=== PATIENT | female | born 1950 | race Caucasian/White ===

== ENCOUNTER 2017-12-03 10:49 | Inpatient (IN) | payer MEDICARE, BC ==
[~2017-12-03] VITALS: Ht 170.2 cm; Wt 80.0 kg
[2017-12-03 12:05] LABS: PARTIAL THROMBOPLASTIN TIME 25 SECONDS (22-32); PROTHROMBIN TIME 10.7 SECONDS (9.0-12.0)
[2017-12-03 12:10] LABS: ALANINE AMINOTRANSFERASE 41 U/L (12-78); ALBUMIN 3.7 G/DL (3.4-5.0); ALBUMIN/GLOBULIN RATIO 1.3 (1.1-1.5); ALKALINE PHOSPHATASE 96 IU/L (46-116); ANION GAP 12 (8-16); ASPARTATE AMINO TRANSFERASE 26 U/L (10-37); BILIRUBIN,TOTAL 0.4 MG/DL (0.1-1.0); BLOOD UREA NITROGEN 12 MG/DL (7-18); BUN/CREATININE RATIO 12.4 (6.6-38.0); CALCIUM 9.1 MG/DL (8.5-10.1); CHLORIDE 102 MMOL/L (99-107); CREATININE 0.97 MG/DL (0.40-0.90); GLUCOSE 208 MG/DL (70-104); SODIUM 140 MMOL/L (135-145); TOTAL CARBON DIOXIDE 26.4 MMOL/L (24-32); TOTAL PROTEIN 6.6 G/DL (6.4-8.2); eGFR 58 ML/MIN
[2017-12-03] MEDS ORDERED: iohexol 350MG/ML 100ml bottle IV ONE (12:29)
[2017-12-03 12:32] LABS: BASOPHILS % (AUTO) 0.2 % (0-1); EOSINOPHILS % (AUTO) 0.1 % (0-6); HEMATOCRIT 41.6 % (35.0-45.0); HEMOGLOBIN 14.2 g/dl (12.0-16.0); LYMPHOCYTES # (AUTO) 0.5 X10'3 (1.1-4.8); LYMPHOCYTES % (AUTO) 4.5 % (21-51); MEAN CORPUSCULAR HEMOGLOBIN 31.6 PG (27.0-31.0); MEAN CORPUSCULAR VOLUME 92.9 FL (78-98); MEAN PLATELET VOLUME 8.5 FL (7.4-10.4); MONOCYTES # (AUTO) 0.4 X10'3 (0-0.9); MONOCYTES % (AUTO) 3.3 % (2-12); NEUTROPHILS # (AUTO) 10.3 X10'3 (1.8-7.7); NEUTROPHILS % (AUTO) 91.9 % (42-75); PLATELET COUNT 218 X10'3 (140-440); RED BLOOD COUNT 4.48 X10'6 (4.20-5.60); RED CELL DISTRIBUTION WIDTH 13.2 % (11.5-14.5); WHITE BLOOD COUNT 11.2 X10'3 (4.5-11.0)
[2017-12-03] MEDS ORDERED: heparin 10,000 units/1 ML INJ IV ONE (14:10)
[2017-12-03] MEDS ORDERED: heparin 10,000 units/1 ML INJ IV PRN ×2 (14:10→16:25)
[2017-12-03] MEDS: normal saline 1000ML IV soln IVB ONE ×2 (14:29→14:57)
[2017-12-03] MEDS: normal saline 1000ml 1,000 ML IV SCH (16:22)
[2017-12-03] MEDS ORDERED: mag hydrox/Alum hydrox/simeth 30ml oral suspension PO PRN (16:25)
[2017-12-03] MEDS ORDERED: magnesium Cl slow-release 64mg tablet PO PRN (16:25)
[2017-12-03] MEDS ORDERED: acetaminophen 325mg tablet PO PRN (16:25)
[2017-12-03] MEDS ORDERED: potassium Cl 40MEQ/NS 500ml 500 ML IV PRN ×2 (16:25)
[2017-12-03] MEDS ORDERED: magnesium/D5W IVPB 50 ML IV PRN (16:25)
[2017-12-03] MEDS ORDERED: magnesium 4gm in 100ml NS 100 ML IV PRN (16:25)
[2017-12-03] MEDS ORDERED: magnesium hydroxide 30ml (MOM) UD suspension PO PRN (16:25)
[2017-12-03] MEDS ORDERED: morphine 4 MG/ML inj SYRINge IV PRN ×2 (16:25)
[2017-12-03] MEDS ORDERED: potassium Cl 20 mEq SR tablet PO PRN (16:25)
[2017-12-03] MEDS ORDERED: ondansetron/PF 4mg/2ml inj IV PRN (16:25)
[2017-12-03] MEDS ORDERED: TRAM50TA2 PO (19:10)
[2017-12-03] MEDS ORDERED: CYCL5TAB PO (19:10)
[2017-12-03 19:30] VITALS: BP 100/72
[2017-12-03] MEDS ORDERED: temazepam 15mg capsule PO PRN (21:00)
[2017-12-03] MEDS: acetaminophen 325mg tablet PO PRN (22:45)
[2017-12-04] VITALS (7 sets, daily range): BP systolic 101–135; BP diastolic 71–79
[2017-12-04 06:11] LABS: BASOPHILS % (AUTO) 0.4 % (0-1); EOSINOPHILS # (AUTO) 0.1 X10'3 (0-0.9); EOSINOPHILS % (AUTO) 0.7 % (0-6); HEMATOCRIT 37.3 % (35.0-45.0); HEMOGLOBIN 12.8 g/dl (12.0-16.0); LYMPHOCYTES # (AUTO) 1.8 X10'3 (1.1-4.8); LYMPHOCYTES % (AUTO) 20.4 % (21-51); MEAN CORPUSCULAR HEMOGLOBIN 31.6 PG (27.0-31.0); MEAN CORPUSCULAR HGB CONC 34.4 % (33.0-36.5); MEAN CORPUSCULAR VOLUME 91.8 FL (78-98); MEAN PLATELET VOLUME 8.4 FL (7.4-10.4); MONOCYTES # (AUTO) 0.7 X10'3 (0-0.9); MONOCYTES % (AUTO) 7.9 % (2-12); NEUTROPHILS # (AUTO) 6.1 X10'3 (1.8-7.7); NEUTROPHILS % (AUTO) 70.6 % (42-75); PLATELET COUNT 201 X10'3 (140-440); RED BLOOD COUNT 4.07 X10'6 (4.20-5.60); RED CELL DISTRIBUTION WIDTH 13.5 % (11.5-14.5); WHITE BLOOD COUNT 8.7 X10'3 (4.5-11.0)
[2017-12-04 06:28] LABS: ALANINE AMINOTRANSFERASE 34 U/L (12-78); ALBUMIN 3.1 G/DL (3.4-5.0); ALBUMIN/GLOBULIN RATIO 1.1 (1.1-1.5); ALKALINE PHOSPHATASE 78 IU/L (46-116); ANION GAP 10 (8-16); ASPARTATE AMINO TRANSFERASE 22 U/L (10-37); BILIRUBIN,TOTAL 0.4 MG/DL (0.1-1.0); BLOOD UREA NITROGEN 12 MG/DL (7-18); BUN/CREATININE RATIO 13.3 (6.6-38.0); CALCIUM 9.2 MG/DL (8.5-10.1); CHLORIDE 103 MMOL/L (99-107); GLUCOSE 114 MG/DL (70-104); MAGNESIUM 1.9 MG/DL (1.5-2.4); POTASSIUM 3.4 MMOL/L (3.5-5.1); SODIUM 138 MMOL/L (135-145); TOTAL CARBON DIOXIDE 25.2 MMOL/L (24-32); TOTAL PROTEIN 5.8 G/DL (6.4-8.2); eGFR 63 ML/MIN
[2017-12-04] MEDS: K and/or MAG REPLACEMENT MC SCH (06:45)
[2017-12-04] MEDS: normal saline 1000ml 1,000 ML IV SCH (07:24)
[2017-12-04] MEDS: potassium Cl 20 mEq SR tablet PO PRN ×3 (07:24→15:35)
[2017-12-04] MEDS: acetaminophen 325mg tablet PO PRN (08:34)
[2017-12-04] MEDS: traMADol 50MG tablet PO PRN ×2 (12:43→20:29)
[2017-12-04] MEDS ORDERED: cyclobenzaprine 10mg tablet PO PRN (13:00)
[2017-12-05 02:00] VITALS: BP 103/80
[2017-12-05 06:00] VITALS: BP 126/78
[2017-12-05 06:02] LABS: ALANINE AMINOTRANSFERASE 36 U/L (12-78); ALBUMIN 3.3 G/DL (3.4-5.0); ALBUMIN/GLOBULIN RATIO 1.1 (1.1-1.5); ALKALINE PHOSPHATASE 76 IU/L (46-116); ANION GAP 8 (8-16); ASPARTATE AMINO TRANSFERASE 12 U/L (10-37); BILIRUBIN,TOTAL 0.4 MG/DL (0.1-1.0); BLOOD UREA NITROGEN 9 MG/DL (7-18); BUN/CREATININE RATIO 10.8 (6.6-38.0); CALCIUM 9.2 MG/DL (8.5-10.1); CHLORIDE 105 MMOL/L (99-107); CREATININE 0.83 MG/DL (0.40-0.90); GLUCOSE 108 MG/DL (70-104); MAGNESIUM 1.9 MG/DL (1.5-2.4); SODIUM 140 MMOL/L (135-145); TOTAL CARBON DIOXIDE 26.7 MMOL/L (24-32); TOTAL PROTEIN 6.2 G/DL (6.4-8.2); eGFR 69 ML/MIN
[2017-12-05 06:27] LABS: BASOPHILS # (AUTO) 0.1 X10'3 (0-0.2); BASOPHILS % (AUTO) 0.7 % (0-1); EOSINOPHILS # (AUTO) 0.2 X10'3 (0-0.9); EOSINOPHILS % (AUTO) 2.5 % (0-6); HEMATOCRIT 41.3 % (35.0-45.0); HEMOGLOBIN 14.1 g/dl (12.0-16.0); LYMPHOCYTES # (AUTO) 1.7 X10'3 (1.1-4.8); LYMPHOCYTES % (AUTO) 22.2 % (21-51); MEAN CORPUSCULAR HEMOGLOBIN 31.5 PG (27.0-31.0); MEAN CORPUSCULAR HGB CONC 34.2 % (33.0-36.5); MEAN CORPUSCULAR VOLUME 92.1 FL (78-98); MEAN PLATELET VOLUME 8.7 FL (7.4-10.4); MONOCYTES # (AUTO) 0.6 X10'3 (0-0.9); MONOCYTES % (AUTO) 8.1 % (2-12); NEUTROPHILS % (AUTO) 66.5 % (42-75); PLATELET COUNT 194 X10'3 (140-440); RED BLOOD COUNT 4.48 X10'6 (4.20-5.60); RED CELL DISTRIBUTION WIDTH 13.1 % (11.5-14.5); WHITE BLOOD COUNT 7.5 X10'3 (4.5-11.0)
[2017-12-05] MEDS: K and/or MAG REPLACEMENT MC SCH (08:00)
[2017-12-05 11:00] VITALS: BP 138/82
[2017-12-05] MEDS: traMADol 50MG tablet PO PRN (11:52)
[2017-12-05 15:00] VITALS: BP 136/87
[2017-12-05] MEDS: apixaban 5mg tablet PO SCH (16:59)
[2017-12-05 18:00] VITALS: BP 143/77
[2017-12-05] MEDS ORDERED: apixaban 5mg tablet PO SCH (20:00)
[2017-12-05 22:00] VITALS: BP 128/76
[2017-12-06 02:00] VITALS: BP 125/71
[2017-12-06 04:50] LABS: BASOPHILS % (AUTO) 0.7 % (0-1); EOSINOPHILS # (AUTO) 0.1 X10'3 (0-0.9); EOSINOPHILS % (AUTO) 1.8 % (0-6); HEMATOCRIT 39.1 % (35.0-45.0); HEMOGLOBIN 13.4 g/dl (12.0-16.0); LYMPHOCYTES # (AUTO) 1.1 X10'3 (1.1-4.8); LYMPHOCYTES % (AUTO) 16.3 % (21-51); MEAN CORPUSCULAR HEMOGLOBIN 31.6 PG (27.0-31.0); MEAN CORPUSCULAR HGB CONC 34.2 % (33.0-36.5); MEAN CORPUSCULAR VOLUME 92.4 FL (78-98); MEAN PLATELET VOLUME 8.2 FL (7.4-10.4); MONOCYTES # (AUTO) 0.6 X10'3 (0-0.9); MONOCYTES % (AUTO) 8.5 % (2-12); NEUTROPHILS # (AUTO) 4.8 X10'3 (1.8-7.7); NEUTROPHILS % (AUTO) 72.7 % (42-75); PLATELET COUNT 210 X10'3 (140-440); RED BLOOD COUNT 4.23 X10'6 (4.20-5.60); RED CELL DISTRIBUTION WIDTH 12.9 % (11.5-14.5); WHITE BLOOD COUNT 6.6 X10'3 (4.5-11.0)
[2017-12-06 05:18] LABS: ALANINE AMINOTRANSFERASE 25 U/L (12-78); ALBUMIN 3.2 G/DL (3.4-5.0); ALBUMIN/GLOBULIN RATIO 1.1 (1.1-1.5); ALKALINE PHOSPHATASE 78 IU/L (46-116); ANION GAP 6 (8-16); ASPARTATE AMINO TRANSFERASE 14 U/L (10-37); BILIRUBIN,TOTAL 0.4 MG/DL (0.1-1.0); BLOOD UREA NITROGEN 9 MG/DL (7-18); BUN/CREATININE RATIO 12.3 (6.6-38.0); CALCIUM 9.1 MG/DL (8.5-10.1); CHLORIDE 105 MMOL/L (99-107); CREATININE 0.73 MG/DL (0.40-0.90); GLUCOSE 117 MG/DL (70-104); MAGNESIUM 2.1 MG/DL (1.5-2.4); POTASSIUM 3.6 MMOL/L (3.5-5.1); SODIUM 138 MMOL/L (135-145); TOTAL PROTEIN 6.2 G/DL (6.4-8.2); eGFR 80 ML/MIN
[2017-12-06 06:00] VITALS: BP 141/83
[2017-12-06] MEDS: apixaban 5mg tablet PO SCH (06:59)
[2017-12-06] MEDS: traMADol 50MG tablet PO PRN (07:00)
[2017-12-06] MEDS: K and/or MAG REPLACEMENT MC SCH (08:00)
[2017-12-06] MEDS ORDERED: loperamide 2mg capsule PO ONE (09:35)
[2017-12-06 11:00] VITALS: BP 132/86
[2017-12-06] MEDS ORDERED: APIX5TAB3 PO ×2 (12:39)
[2017-12-06 19:08] LABS: ANTITHROMBIN ACTIVITY 119 % (75-135); ANTITHROMBIN ANTIGEN 99 % (72-124); PROTEIN S, FREE 126 % (57-157); PROTEIN S, TOTAL 121 % (60-150)
== END 2017-12-06 18:02 | disposition home or self-care (01) | DRG 175 ==
LOC: ER 10:50 → ED HOLD 16:22 → EDBEDREQ 17:41 → PCU 3S 19:15
PROVIDERS: ADMIT Family Medicine; ATTEND Internal Medicine
PROC: B3201ZZ Computerized Tomography (CT Scan) of Thoracic Aorta using Low Osmolar Contrast (ICD-10-PCS; principal; 2017-12-03)
DX: I26.09 Other pulmonary embolism with acute cor pulmonale (principal); I24.8 Other forms of acute ischemic heart disease; G89.29 Other chronic pain; M54.9 Dorsalgia, unspecified; M19.90 Unspecified osteoarthritis, unspecified site; I95.9 Hypotension, unspecified; R09.02 Hypoxemia; R00.0 Tachycardia, unspecified; Z90.721 Acquired absence of ovaries, unilateral; Z88.6 Allergy status to analgesic agent; Z88.5 Allergy status to narcotic agent; Z91.018 Allergy to other foods; Z79.899 Other long term (current) drug therapy; Z86.73 Personal history of transient ischemic attack (TIA), and cerebral infarction without residual deficits; Z80.3 Family history of malignant neoplasm of breast; Z82.0 Family history of epilepsy and other diseases of the nervous system
CPT/HCPCS: 36415; 71045; 71275; 80053; 81479; 83735; 83880; 83891; 83894; 83898; 84484; 85025; 85300; 85301; 85303; 85305; 85306; 85597; 85610; 85730; 86147; 87070; 93005; 93306; 93970; 96374; 99291; A6258; J1644; J7030; Q9967

== ENCOUNTER 2018-06-07 10:09 | Observation (INO) | payer MEDICARE, BC ==
[~2018-06-07] VITALS: Ht 162.6 cm; Wt 87.7 kg
[~2018-06-07 10:09] MED LIST: APIX5TAB3 PO; CYCL5TAB PO; TRAM50TA2 PO
[2018-06-07 10:48] LABS: BASOPHILS # (AUTO) 0.1 X10'3 (0-0.2); BASOPHILS % (AUTO) 0.7 % (0-1); EOSINOPHILS # (AUTO) 0.1 X10'3 (0-0.9); EOSINOPHILS % (AUTO) 1.4 % (0-6); HEMATOCRIT 45.3 % (35.0-45.0); HEMOGLOBIN 15.1 g/dl (12.0-16.0); LYMPHOCYTES # (AUTO) 1.5 X10'3 (1.1-4.8); LYMPHOCYTES % (AUTO) 19.2 % (21-51); MEAN CORPUSCULAR HEMOGLOBIN 30.6 PG (27.0-31.0); MEAN CORPUSCULAR HGB CONC 33.3 % (33.0-36.5); MEAN CORPUSCULAR VOLUME 92.1 FL (78-98); MEAN PLATELET VOLUME 8.3 FL (7.4-10.4); MONOCYTES # (AUTO) 0.6 X10'3 (0-0.9); MONOCYTES % (AUTO) 6.9 % (2-12); NEUTROPHILS # (AUTO) 5.7 X10'3 (1.8-7.7); NEUTROPHILS % (AUTO) 71.8 % (42-75); PLATELET COUNT 231 X10'3 (140-440); RED BLOOD COUNT 4.92 X10'6 (4.20-5.60); RED CELL DISTRIBUTION WIDTH 12.4 % (11.5-14.5)
[2018-06-07 11:12] LABS: ALANINE AMINOTRANSFERASE 27 U/L (12-78); ALBUMIN 3.8 G/DL (3.4-5.0); ALBUMIN/GLOBULIN RATIO 1.2 (1.1-1.5); ALKALINE PHOSPHATASE 100 IU/L (46-116); ANION GAP 11 (8-16); ASPARTATE AMINO TRANSFERASE 22 U/L (10-37); BILIRUBIN,TOTAL 0.4 MG/DL (0.1-1.0); BLOOD UREA NITROGEN 10 MG/DL (7-18); BUN/CREATININE RATIO 12.3 (6.6-38.0); CALCIUM 9.7 MG/DL (8.5-10.1); CHLORIDE 100 MMOL/L (99-107); CREATININE 0.81 MG/DL (0.40-0.90); GLUCOSE 97 MG/DL (70-104); INR 1.1 INR; PARTIAL THROMBOPLASTIN TIME 30 SECONDS (22-32); PROTHROMBIN TIME 10.5 SECONDS (9.0-12.0); SODIUM 136 MMOL/L (135-145); TOTAL CARBON DIOXIDE 25.3 MMOL/L (24-32); TOTAL PROTEIN 7.1 G/DL (6.4-8.2); eGFR 71 ML/MIN
[2018-06-07] MEDS ORDERED: iohexol 350MG/ML 100ml bottle IV ONE (11:19)
--- NOTE | 2018-06-07 12:27 | NUR ---
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
[2018-06-07] MEDS ORDERED: magnesium Cl slow-release 64mg tablet PO PRN (13:15)
[2018-06-07] MEDS ORDERED: magnesium 4gm in 100ml NS 100 ML IV PRN (13:15)
[2018-06-07] MEDS ORDERED: potassium Cl 40MEQ/NS 500ml 500 ML IV PRN ×2 (13:15)
[2018-06-07] MEDS ORDERED: potassium Cl 20 mEq SR tablet PO PRN ×2 (13:15)
[2018-06-07] MEDS ORDERED: albuterol 2.5 MG/3 ML nebule NEB PRN (13:15)
[2018-06-07] MEDS ORDERED: acetaminophen 325mg tablet PO PRN (13:15)
[2018-06-07] MEDS ORDERED: APIX5TAB3 PO (13:39)
--- NOTE | 2018-06-07 16:41 | NUR ---
Patient in room ED 12. I have received report from GRIS Guerra and had the opportunity to ask questions and assume patient care.
[2018-06-07 17:00] VITALS: BP 146/95
[2018-06-07] MEDS ORDERED: traMADol 50MG tablet PO PRN (17:10)
--- NOTE | 2018-06-07 17:30 | NUR ---
Pt refused 2 RN skin assessment. No impaired skin integrity noted, pt states she does not have any open areas.
--- NOTE | 2018-06-07 18:57 | NUR ---
Problems reprioritized. Patient report given, questions answered & plan of care reviewed with GRIS Espana.
--- NOTE | 2018-06-07 18:58 | NUR ---
Patient in room [facility] 354. I have received report from ABRAM LANDRY and had the opportunity to ask questions and assume patient care.
[2018-06-07 19:00] VITALS: BP 132/72
[2018-06-07] MEDS: enoxaparin 100mg/ml syringe SUBCUT SCH (20:05)
[2018-06-08] VITALS: BP 115/72
--- NOTE | 2018-06-08 06:14 | NUR ---
Problems reprioritized. Patient report given, questions answered & plan of care reviewed with IRASEMA LANDRY.
[2018-06-08 07:01] LABS: ALBUMIN 3.4 G/DL (3.4-5.0); ANION GAP 11 (8-16); BLOOD UREA NITROGEN 11 MG/DL (7-18); BUN/CREATININE RATIO 16.7 (6.6-38.0); CALCIUM 9.1 MG/DL (8.5-10.1); CHLORIDE 104 MMOL/L (99-107); CREATININE 0.66 MG/DL (0.40-0.90); GLUCOSE 89 MG/DL (70-104); MAGNESIUM 2.1 MG/DL (1.5-2.4); POTASSIUM 3.5 MMOL/L (3.5-5.1); SODIUM 142 MMOL/L (135-145); TOTAL CARBON DIOXIDE 26.8 MMOL/L (24-32); eGFR 90 ML/MIN
[2018-06-08 07:16] LABS: BASOPHILS % (AUTO) 0.5 % (0-1); EOSINOPHILS # (AUTO) 0.2 X10'3 (0-0.9); EOSINOPHILS % (AUTO) 3.3 % (0-6); HEMATOCRIT 43.3 % (35.0-45.0); HEMOGLOBIN 14.5 g/dl (12.0-16.0); LYMPHOCYTES # (AUTO) 1.7 X10'3 (1.1-4.8); LYMPHOCYTES % (AUTO) 29.6 % (21-51); MEAN CORPUSCULAR HEMOGLOBIN 30.8 PG (27.0-31.0); MEAN CORPUSCULAR HGB CONC 33.5 % (33.0-36.5); MEAN CORPUSCULAR VOLUME 92.1 FL (78-98); MEAN PLATELET VOLUME 8.7 FL (7.4-10.4); MONOCYTES # (AUTO) 0.5 X10'3 (0-0.9); MONOCYTES % (AUTO) 8.7 % (2-12); NEUTROPHILS # (AUTO) 3.4 X10'3 (1.8-7.7); NEUTROPHILS % (AUTO) 57.9 % (42-75); PLATELET COUNT 199 X10'3 (140-440); RED CELL DISTRIBUTION WIDTH 12.9 % (11.5-14.5); WHITE BLOOD COUNT 5.8 X10'3 (4.5-11.0)
[2018-06-08] MEDS: enoxaparin 100mg/ml syringe SUBCUT SCH (07:32)
[2018-06-08 08:00] VITALS: BP 114/68
[2018-06-08] MEDS ORDERED: K and/or MAG REPLACEMENT MC SCH (08:00)
[2018-06-08 11:18] VITALS: BP 127/70
[2018-06-08] MEDS ORDERED: APIX5TAB3 PO (13:13)
--- NOTE | 2018-06-08 14:29 | NUR ---
PATIENT DISCHARGED HOME. STABLE AND APPROPRIATE . ALL BELONGINGS TAKEN FROM ROOM. IV REMOVED. 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
== END 2018-06-08 14:26 | disposition home or self-care (01) ==
LOC: ER 10:09 → ED HOLD 13:13 → SUR 3N 17:10
PROVIDERS: ADMIT Internal Medicine; ATTEND Internal Medicine
DX: I26.99 Other pulmonary embolism without acute cor pulmonale (principal); M54.9 Dorsalgia, unspecified; G89.29 Other chronic pain; I34.1 Nonrheumatic mitral (valve) prolapse; K21.9 Gastro-esophageal reflux disease without esophagitis; Z88.4 Allergy status to anesthetic agent; Z88.8 Allergy status to other drugs, medicaments and biological substances
CPT/HCPCS: 36415; 71045; 71275; 80048; 80053; 83735; 83880; 84484; 85025; 85610; 85730; 87070; 93005; 93306; 93970; 94760; 96372; 99284; G0378; Q9967; J1650